=== PATIENT | female | born 1940 | race Caucasian/White ===

== ENCOUNTER 2022-12-16 08:38 | Emergency (ER) | payer OTHER ==
[2022-12-16 09:25] LABS: Absolute Lymphocytes (CBC) 1.9 K/uL (0.7-4.9); Hematocrit 44.7 % (36.0-45.0); Lymphocytes % 28.8 % (15.3-44.8); MPV 8.5 fL (7.6-11.3); Platelets 278 thou/uL (152-406); RBC Red Blood Cell Count 4.76 M/uL (3.86-4.86)
[2022-12-16 09:26] LABS: Protime INR 0.97
[2022-12-16 09:50] LABS: Potassium 3.6 mEq/L (3.5-5.1); Troponin High Sensitivity 12.9 pg/mL (<58.9)
--- NOTE | 2022-12-16 10:25 | RAD REPORT ---
EXAM DESCRIPTION: Abhilasht Single View12/16/2022 9:30 am CLINICAL HISTORY: CHEST PAIN COMPARISON: CHEST SINGLE VIEW dated 09/01/2014; CHEST SINGLE VIEW dated 03/30/2012; CHEST SINGLE VIEW da samm 10/27/2007 TECHNIQUE: Portable AP view of the chest. FINDINGS: The lungs are clear. Mild central interstitial prominence and crowding of the vascular mar kings is favored to relate to under aeration. No pneumothorax or effusion. The cardiomediastinal cont ours are unremarkable. Left chest wall pacer and left atrial appendage occlusion device have been pl aced. IMPRESSION: No acute cardiopulmonary process.
--- NOTE | 2022-12-16 11:58 | EDPHYS ---
Physician Documentation [facility] Name: Delia Fisher Age: 82 yrs Sex: Female : 1940 Arrival Date: 12/16/2022 Time: 08:38 Bed 17 Private MD: ED Physician Lion Herrera HPI: 12/16 08:46 This 82 yrs old Female presents to ER via EMS with complaints of Chest Pain, Possible aj3 Cardiac Related - pacemaker miscommunication; chest pressure and SOB. 08:46 Patient reports that she has been having some chest pressure, posterior head/neck aj3 pressure and shortness of breath over the past week. She was post have an appointment with her prototype engineer Dr. Farley at 2 PM today. She woke up with her pacemaker medication beeping and informing her to call her doctor but she was unable to get in touch with them. Her pacemaker is [employer]. Historical: - Allergies: 08:45 Hydrocortisone; db 08:45 Feldene; db 08:45 thimerosal; db 08:45 Lipitor; db - PMHx: 08:45 Atrial fibrillation; COPD; HEART ATTACK; Cerebrovascular accident; STROKE; db - PSHx: 08:45 PACEMAKER; db - Immunization history:: Client reports receiving the 2nd dose of the Covid vaccine. - Social history:: Smoking status: Patient denies any tobacco usage or history of. ROS: 08:46 Constitutional: Negative for fever, chills, and weight loss, aj3 08:46 Cardiovascular: Positive for chest pressure, 08:46 Respiratory: Positive for shortness of breath, Exam: 08:46 Constitutional: This is a well developed, well nourished patient who is awake, alert, aj3 and in no acute distress. 08:46 Cardiovascular: Rate: normal, Rhythm: irregular, Pulses: Pulses are 2+ in right radial artery, right dorsalis pedis artery, left radial artery and left dorsalis pedis artery. Heart sounds: normal, 08:46 ECG was reviewed by the Attending Physician. 08:46 Neck: Supple, full range of motion without nuchal rigidity. Respiratory: Lungs have aj3 equal breath sounds bilaterally, clear to auscultation and percussion. No rales, rhonchi or wheezes noted. No increased work of breathing, no retractions or nasal flaring. Abdomen/GI: Soft, non-tender, with normal bowel sounds. No distension or tympany. No guarding or rebound. No evidence of tenderness throughout. Skin: Warm, dry with normal turgor. Normal color with no rashes, no lesions, and no evidence of cellulitis. MS/ Extremity: Pulses equal, no cyanosis. Neurovascular intact. Full, normal range of motion. Neuro: Awake and alert, GCS 15, oriented to person, place, time, and situation. Motor strength 5/5 in all extremities. Sensory grossly intact. Normal gait. Vital Signs: 08:40 BP 124 / 68; Pulse 82; Resp 18; Temp 97.1(O); Pulse Ox 96% on R/A; Weight 86.18 kg; db Height 5 ft. 6 in. ; Pain 0/10; 11:15 BP 162 / 70; Pulse 78; Resp 16; Pulse Ox 98% on R/A; db 12:09 BP 130 / 52; Pulse 82; Resp 16; Pulse Ox 100% on R/A; db 08:40 Body Mass Index 30.67 (86.18 kg, 167.64 cm) db 08:40 Pain Scale: Adult db MDM: 08:43 Patient medically screened. aj3 09:00 Differential diagnosis: STEMI, NSTEMI, bradycardia, arrhythmia, CHF, pacemaker aj3 malfunction. 11:00 Data reviewed: vital signs, nurses notes, lab test result(s), EKG, radiologic studies, aj3 plain films, I have discussed the patient's presentation/case with the attending Emergency Department Physician;. Independent interpretation of the following test(s) in the Emergency Department X-Ray: My interpretation is no fluid noted. Historians other than the Patient: EMS: . Spouse/Significant Other: . Care significantly affected by the following chronic conditions: Chronic Obstructive Pulmonary Disease, stroke, CAD. Counseling: I had a detailed discussion with the patient and/or guardian regarding the historical points, exam findings, and any diagnostic results supporting the discharge/admit diagnosis, lab results, the need for outpatient follow up, to return to the emergency department if symptoms worsen or persist or if there are any questions or concerns that arise at home. 11:34 ED course: Spoke with Dr. Farley who was able to retrieve the interrogation report aj3 which displayed atrial fibrillation but otherwise pacemaker working properly. He recommended patient to be started on Eliquis which first dose can be given here. The patient was updated on this conversation and would like to be discharged to follow-up with Dr. Farley who his appointment is at 2 PM today. Strict ER return precautions given.. 12/16 08:55 Order name: Basic Metabolic Panel; Complete Time: 10:13 12/16 08:55 Order name: CBC with Diff; Complete Time: 09:45 12/16 08:55 Order name: NT PRO-BNP; Complete Time: 10:13 12/16 08:55 Order name: Troponin HS; Complete Time: 10:13 12/16 08:55 Order name: PT-INR; Complete Time: 09:45 12/16 08:55 Order name: XRAY Chest (1 view); Complete Time: 10:35 12/16 08:55 Order name: EKG; Complete Time: 08:56 12/16 08:55 Order name: Cardiac monitoring; Complete Time: 08:59 12/16 08:55 Order name: EKG - Nurse/Tech; Complete Time: 08:59 12/16 08:55 Order name: IV Saline Lock; Complete Time: 08:59 12/16 08:55 Order name: Labs collected and sent; Complete Time: 08:59 12/16 08:55 Order name: O2 Per Protocol; Complete Time: 08:59 12/16 08:55 Order name: O2 Sat Monitoring; Complete Time: 08:59 3 EC:45 Rate is 78 beats/min. Left axis deviation noted. QRS interval is normal. QT interval is aj3 normal. No ST changes noted. Clinical impression: A flutter with variable AV block; PVCs, occasional paced. Administered Medications: 12:12 Drug: Eliquis PO 5 mg PO once Route: PO; db 12:37 Follow up: Response: No adverse reaction db Disposition: 17:20 Co-signature as Attending Physician, Lion Herrera MD I reviewed the patient's care rn provided by the Advanced Practice Provider and agree with the diagnosis and treatment plan. Disposition Summary: 12/16/22 11:57 Discharge Ordered Problem: new aj3 Symptoms: have improved aj3 Condition: Stable aj3 Diagnosis - Unspecified atrial fibrillation aj3 - Presence of cardiac pacemaker aj3 Followup: aj3 - With: Private Physician - When: - Reason: Recheck today's complaints, Re-evaluation by your physician Discharge Instructions: - Discharge Summary Sheet aj3 - Atrial Fibrillation aj3 Forms: - Medication Reconciliation Form aj3 - Thank You Letter aj3 - Antibiotic Education aj3 - Prescription Opioid Use aj3 - Patient Portal Instructions aj3 - Leadership Thank You Letter aj3 Signatures: Dispatcher [employer] EDMS Lion Herrera MD MD rn Jennings, Amanda, NP COLLEGE ATHLETIC DIRECTOR aj3 Kala Ann RN RN db Corrections: (The following items were deleted from the chart) 08:48 08:45 Allergies: No Known Allergies; db db 08:48 08:45 Allergies: Hydrocortone; db db 08:54 08:46 Patient reports that she has been having some chest pressure, posterior head/neck aj3 pressure and shortness of breath over the past week. She was post have an appointment with her prototype engineer Dr. Farley at 2 PM today. She woke up with her pacemaker medication beeping and informing her to call her doctor but she was unable to get in touch with them.. aj3 18:21 11:34 ED course: Spoke with Dr. Farley. aj3 aj3
--- NOTE | 2022-12-16 11:58 | ER ---
Nurse's Notes [facility] Name: Delia Fisher Age: 82 yrs Sex: Female : 1940 Arrival Date: 12/16/2022 Time: 08:38 Bed 17 Private MD: Diagnosis: Unspecified atrial fibrillation;Presence of cardiac pacemaker Presentation: 12/16 08:40 Chief complaint: EMS states: PATIENT CALLED 911 FOR PACEMAKER MISS FIRING. PATIENT db STATES LEFT ARM AND HEAD PRESSURE X 1 WEEK. PT UNABLE TO GET A HOLD OF HOT SAW HELPER. Coronavirus screen: Vaccine status: Client denies travel out of the [place] in the last 14 days. At this time, the client does not indicate any symptoms associated with coronavirus-19. Ebola Screen: Patient negative for fever greater than or equal to 101.5 degrees Fahrenheit, and additional compatible Ebola Virus Disease symptoms Patient denies exposure to infectious person. Patient denies travel to an Ebola-affected area in the 21 days before illness onset. No symptoms or risks identified at this time. Initial Sepsis Screen: Does the patient meet any 2 criteria? No. Patient's initial sepsis screen is negative. Does the patient have a suspected source of infection? No. Patient's initial sepsis screen is negative. Risk Assessment: Do you want to hurt yourself or someone else? Patient reports no desire to harm self or others. Onset of symptoms was December 16, 2022. 08:40 Method Of Arrival: EMS: [facility] db 08:40 Acuity: LEANDER 2 db Triage Assessment: 08:45 General: Appears in no apparent distress. comfortable, Behavior is calm, cooperative. db Pain: Complains of pain in chest. Neuro: Level of Consciousness is awake, alert, obeys commands, Oriented to person, place, time, situation. Cardiovascular: Reports chest pain, PATIENT REPORTS PACE MAKER MISS FIRING. LEFT ARM PAIN. Respiratory: Airway is patent Respiratory effort is even, unlabored, Respiratory pattern is regular, symmetrical. GI: Abdomen is flat. : No deficits noted. No signs and/or symptoms were reported regarding the genitourinary system. Derm: No deficits noted. No signs and/or symptoms reported regarding the dermatologic system. Musculoskeletal: No deficits noted. No signs and/or symptoms reported regarding the musculoskeletal system. Historical: - Allergies: 08:45 Hydrocortisone; db 08:45 Feldene; db 08:45 thimerosal; db 08:45 Lipitor; db - PMHx: 08:45 Atrial fibrillation; COPD; HEART ATTACK; Cerebrovascular accident; STROKE; db - PSHx: 08:45 PACEMAKER; db - Immunization history:: Client reports receiving the 2nd dose of the Covid vaccine. - Social history:: Smoking status: Patient denies any tobacco usage or history of. Screenin:35 [facility] ED Fall Risk Assessment (Adult) History of falling in the last 3 months, db including since admission No falls in past 3 months (0 pts) Score/Fall Risk Level 0 - 2 = Low Risk Oriented to surroundings, Maintained a safe environment. Abuse screen: Denies threats or abuse. Denies injuries from another. Nutritional screening: No deficits noted. Tuberculosis screening: No symptoms or risk factors identified. Assessment: 08:49 Reassessment: SEE TRIAGE FOR INITIAL ASSESSMENT. Pain: Denies pain. db 11:00 Reassessment: Patient appears in no apparent distress at this time. Patient and/or db family updated on plan of care and expected duration. Pain level reassessed. SPOKE WITH EDWARD FOR PATIENT CARDIAC INTERROGATION. STATES CAN SEND REPORT FOR PACEMAKER THROUGH FAX. General: Appears in no apparent distress. comfortable, Behavior is calm, cooperative. Pain: Pain began gradually. 12:35 Reassessment: Patient appears in no apparent distress at this time. Patient and/or db family updated on plan of care and expected duration. Pain level reassessed. Patient is alert, oriented x 3, equal unlabored respirations, skin warm/dry/pink. Patient states feeling better. Patient states symptoms have improved. Vital Signs: 08:40 BP 124 / 68; Pulse 82; Resp 18; Temp 97.1(O); Pulse Ox 96% on R/A; Weight 86.18 kg; db Height 5 ft. 6 in. ; Pain 0/10; 11:15 BP 162 / 70; Pulse 78; Resp 16; Pulse Ox 98% on R/A; db 12:09 BP 130 / 52; Pulse 82; Resp 16; Pulse Ox 100% on R/A; db 08:40 Body Mass Index 30.67 (86.18 kg, 167.64 cm) db 08:40 Pain Scale: Adult db ED Course: 08:41 Patient arrived in ED. db 08:42 Stephanie Mclean NP is PHCP. aj3 08:42 Lion Herrera MD is Attending Physician. aj3 08:45 Triage completed. db 08:45 Arm band placed on Patient placed in an exam room. db 08:47 EKG done, by ED staff, reviewed by Stephanie Mclean NP. em1 08:56 Kala Ann, RN is Primary Nurse. db 09:13 Initial lab(s) drawn, by ED staff, sent to lab. Inserted saline lock: 22 gauge in right db antecubital area, using aseptic technique. Blood collected. 09:32 XRAY Chest (1 view) In Process Unspecified. EDMS 10:42 Online Program Coordinator notified at 10:42. bd 12:35 No provider procedures requiring assistance completed. IV discontinued, intact, db bleeding controlled, No redness/swelling at site. Patient maintains SpO2 saturation greater than 95% on room air. 12:35 Patient has correct armband on for positive identification. Bed in low position. Call db light in reach. Side rails up X 1. Provided Education on: DISCHARGE. Client placed on continuous cardiac and pulse oximetry monitoring. NIBP monitoring applied. Administered Medications: 12:12 Drug: Eliquis PO 5 mg PO once Route: PO; db 12:37 Follow up: Response: No adverse reaction db Medication: 12:35 VIS not applicable for this client. db Outcome: 11:57 Discharge ordered by . aj3 12:35 Discharged to home via wheelchair, db 12:35 Discharged to home via wheelchair, with family, 12:35 Condition: stable 12:35 Discharge instructions given to patient, Instructed on discharge instructions, follow up and referral plans. Prescriptions given X 1, 12:37 Patient left the ED. db Signatures: Dispatcher [employer] EDMS Gricelda Olmedo bd Jae Anderson em1 Stephanie Mclean NP GRINDING MACHINE OPERATOR AUTOMATIC aj3 Kala Ann, RN RN db Corrections: (The following items were deleted from the chart) 08:48 08:45 Allergies: No Known Allergies; db db 08:48 08:45 Allergies: Hydrocortone; db db
[2022-12-16] MEDS ORDERED: APIXABAN 5 MG TABLET ONE (12:23)
[2022-12-16 14:03] VITALS: TEMP 97.1
[2022-12-16 14:05] VITALS: BP 130/52; O2SAT 100
--- NOTE | 2022-12-17 14:36 | EKG ---
Test Date: 2022-12-16 Test Time: 08:45:02 Supercharger Repair Supervisor: YESICA MEASUREMENT RESULTS: Intervals: Rate: 78 W[place]: QRSD: 84 QT: 398 QTc: 453 [place]: P: 260 WV: QRS: -35 T: 72 INTERPRETIVE STATEMENTS: Atrial flutter with variable AV block with premature ventricular or aberrantly conducted complexes Left axis deviation Abnormal ECG Compared to ECG 09/01/2014 14:58:09 Ventricular premature complex(es) now present Left-axis deviation now present Sinus rhythm no longer present Atrial premature complex(es) no longer present Aberrant conduction of supraventricular beat(s) no longer present Electronically Signed On 12-17-22 14:32:42 CDT by Rafiq Rodriguez
== END 2022-12-16 12:37 | disposition home or self-care (01) ==
LOC: ER 08:38
DX: I48.91 Unspecified atrial fibrillation (principal); Z95.0 Presence of cardiac pacemaker; J44.9 Chronic obstructive pulmonary disease, unspecified; Z88.8 Allergy status to other drugs, medicaments and biological substances
CPT/HCPCS: 36415; 71045; 80048; 83880; 84484; 85025; 85610; 93005